=== PATIENT | female | born 1985 | race African-American/Black ===

== ENCOUNTER 2019-08-03 11:43 | Emergency (ER) | payer MEDICAID ==
[~2019-08-03] VITALS: Ht 185.4 cm; Wt 76.2 kg
[2019-08-03 11:46] VITALS: BP 134/79
--- NOTE | 2019-08-03 11:55 | NUR ---
JOSH MONROE AT BEDSIDE FOR EVAL.
== END 2019-08-03 12:18 | disposition home or self-care (01) ==
LOC: ER 11:43
DX: L20.9 Atopic dermatitis, unspecified (principal); Z88.1 Allergy status to other antibiotic agents; Z60.2 Problems related to living alone